=== PATIENT | male | born 1980 | race Caucasian/White ===

== ENCOUNTER 2023-11-10 04:08 | Day surgery (SDC) | payer OTHER ==
[2023-11-10] VITALS (233 sets, daily range): BP systolic 72–156; BP diastolic 27–127
--- NOTE | 2023-11-10 07:17 | NUR ---
PATIENT AMBULATORY TO ROOM WITH . PATIENT IS ALERT AND OREINTED X3. CONSENTS OBTAINED VS WITH MED HX OBTAINED DR CAMERON NOTIFIED. NEW ORDERS RECEIVED. PATIENT MEDICATED PER MD ORDERS. ADMISSION ASSESSMENT COMPELTED AT THIS TIME. IV ESTABLISHED. WILL CONMTINEU TO MONITOR.
[2023-11-10] MEDS ORDERED: SCOPOLAMINE 1.5 MG DIS TD PRN (07:30)
[2023-11-10] MEDS ORDERED: CYANOCOBALAMIN 500 MCG/TAB ( B12) PO PRN (07:30)
[2023-11-10] MEDS ORDERED: cloNIDine HCL 0.1 MG/TAB PO PRN (07:30)
[2023-11-10] MEDS ORDERED: PANTOPRAZOLE SODIUM Sesquihydr 40 MG/TAB PO PRN (07:30)
[2023-11-10] MEDS ORDERED: FAMOTIDINE 20 MG/TAB PO PRN (07:30)
[2023-11-10] MEDS ORDERED: diazePAM 5 MG/TAB PO PRN ×2 (07:30→08:30)
[2023-11-10] MEDS ORDERED: LACTATED RINGER'S 1,000 ML IV PRN ×3 (07:30→19:00)
[2023-11-10] MEDS ORDERED: ALBUTEROL SULFATE 2.5 MG VIAL IN PRN (07:30)
[2023-11-10] MEDS ORDERED: ASCORBIC ACID 4,000 MG in SODIUM CHLORIDE 0.9% 1,000 ML IV SCH (08:00)
[2023-11-10 08:08] LABS: BASO% 0.2 % (0-3); EOS% 7.7 % (0-8); HEMATOCRIT 43.6 % (39.0-50.0); IMMATURE GRANULOCYTES 0.3 % (0.0-5.0); MEAN CELL VOLUME 88.3 fL CALC (80.0-100.0); MEAN CORPUSCULAR HGB 28.3 pG CALC (26.0-32.0); MEAN CORPUSCULAR HGB CONC 32.1 g/dL CAL (32.0-36.0); MONO% 10.7 % (2-13); NEUT# 5.61 thou/uL (1.82-7.42); NEUT% 60.1 % (42-76); RED BLOOD COUNT 4.94 mill/uL (4.70-6.10); RED CELL DISTRI WIDTH 12.9 % (11.5-15.5)
[2023-11-10 08:30] LABS: ALBUMIN 4.5 g/dL (3.2-5.0); BILIRUBIN, TOTAL 0.7 mg/dL (0.2-1.3); CREATININE 1.1 mg/dL (0.7-1.3); POTASSIUM 4.3 mmol/l (3.5-5.1); TOTAL PROTEIN 7.5 g/dL (6.3-8.2)
--- NOTE | 2023-11-10 08:30 | NUR ---
RT AT BEDSIDE FOR EKG
[2023-11-10] MEDS ORDERED: cloNIDine HYDROCHLORIDE 100 MCG/ML 10 ML INJ IV PRN (08:35)
[2023-11-10] MEDS ORDERED: PROPOFOL 100 ML IV PRN (08:35)
[2023-11-10] MEDS ORDERED: LIDOCAINE HCL 1% (10MG/ML) 100 MG/10 ML MDV VT PRN ×2 (08:35)
[2023-11-10] MEDS ORDERED: PROPOFOL 10 MG/ML 100ML VIAL IV PRN (08:35)
[2023-11-10] MEDS ORDERED: DiphenhydrAMINE HCL 50 MG/ML SDV IV PRN (08:35)
[2023-11-10] MEDS ORDERED: SUCCINYLCHOLINE CHLORIDE 20 MG/ML 10ML VIAL IV PRN (08:35)
[2023-11-10] MEDS ORDERED: MIDAZOLAM HCL 2 MG/2 ML VIAL IV PRN (08:35)
[2023-11-10] MEDS ORDERED: diazePAM 5 MG/TAB VT PRN (08:35)
[2023-11-10] MEDS ORDERED: STERILE WATER FOR IRRIGATION 1,000 ML BTL IR PRN (08:35)
[2023-11-10] MEDS ORDERED: DEXAMETHASONE SODIUM PHOSPHATE PF 10 MG/ML SDV IV PRN ×2 (08:35→19:00)
[2023-11-10] MEDS ORDERED: ONDANSETRON HCl 4 MG/2 ML SDV IV PRN ×3 (08:35→19:00)
[2023-11-10] MEDS ORDERED: MAGNESIUM SULFATE HEPTAHYDRATE 100 ML IV PRN (08:35)
[2023-11-10] MEDS ORDERED: cloNIDine HCL 0.1 MG/TAB VT PRN (08:35)
[2023-11-10] MEDS ORDERED: ROCURONIUM BROMIDE 10 MG/ML 5ML VIAL IV PRN (08:35)
[2023-11-10] MEDS ORDERED: NALTREXONE HCL 50 MG/TAB VT PRN (08:35)
[2023-11-10] MEDS ORDERED: OCTREOTIDE ACETATE 100 MCG/VIAL SDV SC PRN (08:35)
[2023-11-10] MEDS ORDERED: LIDOCAINE HCL 1% (10MG/ML) 100 MG/10 ML MDV IV PRN (08:35)
[2023-11-10] MEDS ORDERED: THIAMINE HCL 100 MG/ML 2ML VIAL IV PRN (08:35)
--- NOTE | 2023-11-10 09:00 | NUR ---
DR PRATT AT BEDSIDE TO SEE PATIENT.
--- NOTE | 2023-11-10 09:15 | NUR ---
Induction Note Time out performed at 0915. Patient placed on monitors, Eleazar hugger, bilateral wrist restraints applied for ET tube protection. Versed 5mg given IV push at 09 Tourniquet applied to RIGHT arm Lidocaine 100mg given [id number] IV push followed by Rocoronium 10mg at 0922 IV push and held for 90 seconds. Propofol bolus of 130mg given at 0923 IV push. Succinylcholine 80mg given IV push at 0924. Smooth intubation with 7.5 ETT. Positive CO2. Positive Auscultation for air exchange. Patient placed on ventilator for spontaneous ventilation. Placed on Propofol IV drip at 0924. OG inserted. Positive air on auscultation. Positive gastric content. Stomach washed at this time.
--- NOTE | 2023-11-10 09:30 | NUR ---
OG close note Stomach washed at this time. Naltrexone 50 mg with Clonidine 0.2 mg via OG tube. OG will be clamped for 45 minutes.
[2023-11-10] MEDS ORDERED: POTASSIUM CHLORIDE 20 MEQ/100 ML BAG IV PRN (09:35)
--- NOTE | 2023-11-10 09:46 | NUR ---
OG open note OG open at this time due to patient vomiting. oral suction performed and ET suction performed Gastric content draining into drainage bag. OG to drain for 45 minutes. Propofol will be titrated down based on patient.
--- NOTE | 2023-11-10 10:30 | NUR ---
OG close note Stomach washed at this time. Naltrexone 50 mg with Clonidine 0.2 mg via OG tube. OG will be clamped for 45 minutes.
--- NOTE | 2023-11-10 11:15 | NUR ---
OG open note OG open at this time. Gastric content draining into drainage bag. OG to drain for 45 minutes. Propofol will be titrated down based on patient.
--- NOTE | 2023-11-10 12:05 | NUR ---
OG close note Stomach washed at this time. Naltrexone 50 mg with Clonidine 0.1 mg via OG tube. OG will be clamped for 45 minutes.
--- NOTE | 2023-11-10 12:50 | NUR ---
4OG open note OG open at this time. Gastric content draining into drainage bag. OG to drain for 45 minutes. Propofol will be titrated down based on patient.
[2023-11-10] MEDS ORDERED: KLONOPIN2 MG PO (13:16)
[2023-11-10] MEDS ORDERED: CLONIDINE0.1 MG PO (13:16)
[2023-11-10] MEDS ORDERED: NALTREXONE50 MG PO (13:16)
--- NOTE | 2023-11-10 13:35 | NUR ---
OG close note Stomach washed at this time. Naltrexone 50 mg via OG tube. OG will be clamped for 45 minutes.
[2023-11-10] MEDS ORDERED: LIDOCAINE HCL 1% (10MG/ML) 100 MG/10 ML MDV IV SCH (15:00)
[2023-11-10] MEDS ORDERED: ACETAMINOPHEN 1,000 MG/100 ML VIAL IV SCH (15:00)
[2023-11-10] MEDS ORDERED: KETOROLAC TROMETHAMINE 30 MG/ML SDV IV SCH (15:00)
--- NOTE | 2023-11-10 15:00 | NUR ---
VALIUM 10MG GIVEN VIA og tube
--- NOTE | 2023-11-10 15:35 | NUR ---
Extubation note Closing medications given Benadryl 50mg IV push, Decadron 10mg IV push,Magnesium 4 grams IV, Zofran 8mg IV push, Octreotide 100mcg SC. Stomach washed out prior to extubation. Suctioned gastric content. OG removed. Patient extubated. Propofol Discontinued. Wrist restraints removed. Eleazar hugger Removed. See ANR Moderate sedate recovery record for further notes and assessment.
--- NOTE | 2023-11-10 16:00 | NUR ---
patient vomitted medicated with brhemsys per md.
--- NOTE | 2023-11-10 16:53 | NUR ---
[facility] p[facility]int on cpap per md. patient tolerating well.
--- NOTE | 2023-11-10 17:06 | NUR ---
PATIENT JUST ARRIVED TO [facility] FROM [facility] REPORT WAS GIVEN FROM KAITLIN RN; PATIENT SLEEPING IN BED; RT APPLIED CPAP TO PATIENT; NO S/S OF DISTRESS AT THIS TIME; VITALS WAS STABLE; EYE COVERING IN PLACE; IV SITE CLEAN AND INTACT LR RUNNING ON RAC @100; PERSONAL ITEMS IN [facility] LOCKER; CALL LIGHT WITHIN REACH, BED IN LOWEST POSTION; BED ALARM ACTIVATED
--- NOTE | 2023-11-10 17:15 | NUR ---
kieran to [facility]. bedside report given. s/o updated
[2023-11-10] MEDS ORDERED: PROMETHAZINE HCL 25 MG in SODIUM CHLORIDE 0.9% 50 ML IV PRN (19:00)
[2023-11-10] MEDS ORDERED: HALOPERIDOL LACTATE 5 MG/ML SDV IV PRN (19:00)
[2023-11-10] MEDS ORDERED: PROMETHAZINE HCL 12.5 MG in SODIUM CHLORIDE 0.9% 50 ML IV PRN (19:00)
[2023-11-10] MEDS ORDERED: KETOROLAC TROMETHAMINE 30 MG/ML SDV IV PRN (19:00)
[2023-11-10] MEDS ORDERED: ACETAMINOPHEN 1,000 MG/100 ML VIAL IV PRN (19:00)
[2023-11-10] MEDS ORDERED: LORazepam 2 MG/ML IV PRN ×2 (19:00)
[2023-11-10] MEDS ORDERED: ACETAMINOPHEN 500 MG TAB PO PRN (19:00)
--- NOTE | 2023-11-10 20:00 | NUR ---
RECEIVED REPORT FROM DAYSHIFT NURSE DENNIS ABRAMS. PT NOTED TOSSING AND TURNING IN BED, CPAP APPLIED HOWEVER KEPT TRYING TO REMOVE. PT STATED "WHAT TIME CAN I LEAVE" PT IS A/OX2 TO SELF AND PLACE, ABLE TO RECALL PROCEDURE COMPLETED. REORIENTED PT TO TIME AND EDUCATED ON POC AND MED SCHEDULE FOR TONIGHT. PT THEN ASKED "CAN I GET SOME MORE VALIUM" REITERATED TO PT MED SCHEDULE. IV SITES APPEAR HEALTHY AND INTACT WITH FLUIDS RUNNING PER EMAR. VSS. NO S/S OF DISTRESS. BED ALARM ON AND SAFETY PRECAUTIONS IN PLACE.
[2023-11-10] MEDS ORDERED: PATIENT' OWN MED CONTROLLED 1 EA DOSE IV PRN (21:00)
[2023-11-10] MEDS ORDERED: cloNIDine HCL 0.1 MG/TAB PO SCH (23:00)
[2023-11-10] MEDS ORDERED: clonazePAM 1 MG/TAB PO PRN (23:00)
--- NOTE | 2023-11-10 23:36 | NUR ---
PT RECEIVED SCHEDULED MEDICATIONS PER EMAR AND TOLERATED WELL. PT DENIES ANY P/N/V AT THIS TIME. PT REQUESTED TO USE THE OMA, GLASS CLEANER AND REGIONAL ACCOUNT MANAGER ASSISTED PT TO BSC. PT VOIDED WITHOUT DIFFICULTY. ASSISTED BACK INTO BED. OFFERED EXTRA PILLOWS AND WARM BLANKET FOR COMFORT. CPAP REAPPLIED. PT LAYING IN BED ON RT SIDE. NO S/S OF DISTRESS. VSS. BED ALARM ON AND SAFETY PRECAUTIONS IN PLACE.
[2023-11-11] MEDS ORDERED: cloNIDine HCL 0.1 MG/TAB PO PRN (04:00)
[2023-11-11] MEDS ORDERED: clonazePAM 1 MG/TAB PO PRN ×2 (04:00→08:00)
[2023-11-11] MEDS ORDERED: NALTREXONE HCL 50 MG/TAB PO SCH (04:00)
[2023-11-11 04:14] VITALS: BP 126/68
--- NOTE | 2023-11-11 04:47 | NUR ---
PT NOTED LAYING IN BED ON LEFT SIDE, CPAP IN PLACE. ADMINISTERED 0400 MEDICATIONS PER EMAR, PT TOLERATED WELL. CPAP MASK REAPPLIED IN PLACE. PT DNEIED ANY N/V/P AT THIS TIME. VSS. NO S/S OF DISTRESS. BED ALARM ON AND SAFETY PRECAUTIONS IN PLACE.
[2023-11-11 05:39] LABS: ALBUMIN 4.1 g/dL (3.2-5.0); BILIRUBIN, TOTAL 0.8 mg/dL (0.2-1.3); CREATININE 0.9 mg/dL (0.7-1.3); MAGNESIUM 2.2 mg/dL (1.6-2.3); POTASSIUM 4.1 mmol/l (3.5-5.1); TOTAL PROTEIN 6.7 g/dL (6.3-8.2)
[2023-11-11 05:43] LABS: BASO% 0.1 % (0-3); EOS% 0.1 % (0-8); HEMATOCRIT 39.1 % (39.0-50.0); HEMOGLOBIN 12.6 g/dl (14.0-18.0); IMMATURE GRANULOCYTES 0.3 % (0.0-5.0); LYMPH% 4.6 % (15-41); MEAN CELL VOLUME 87.5 fL CALC (80.0-100.0); MEAN CORPUSCULAR HGB 28.2 pG CALC (26.0-32.0); MEAN CORPUSCULAR HGB CONC 32.2 g/dL CAL (32.0-36.0); NEUT# 16.59 thou/uL (1.82-7.42); NEUT% 90.9 % (42-76); RED BLOOD COUNT 4.47 mill/uL (4.70-6.10); RED CELL DISTRI WIDTH 12.5 % (11.5-15.5)
[2023-11-11] MEDS ORDERED: PANTOPRAZOLE SODIUM Sesquihydr 40 MG/TAB PO SCH (08:00)
[2023-11-11] MEDS ORDERED: cloNIDine HCL 0.1 MG/TAB PO SCH (08:00)
[2023-11-11] MEDS ORDERED: ACETAMINOPHEN 325 MG/TAB PO SCH (08:00)
[2023-11-11 08:08] VITALS: BP 117/52
--- NOTE | 2023-11-11 08:55 | NUR ---
patient a/o x3; patient on cpap; deneid any pain; denied any n/d/v; patient tolerated medication admin; encouraged patient to try to eat breakfast; denied needing anything; medication reviewed; no s.s of distress at this time; labs within range, iv site clean and intact running with LR @100; call light within reach, verbalized understanding on how to use, personal items in anr locker; bed in lowest postion; bed alarm activated
[2023-11-11] MEDS ORDERED: ACETAMINOPHEN 500 MG TAB PO PRN (09:00)
[2023-11-11] MEDS ORDERED: MAGNESIUM OXIDE 400 MG/TAB PO PRN (09:00)
[2023-11-11] MEDS ORDERED: Cholecalciferol 2,000 UNIT/TAB PO PRN (09:00)
--- NOTE | 2023-11-11 10:04 | NUR ---
RT in room with patient, cpap was removed and moved to 2L of NC' o2 stable;
--- NOTE | 2023-11-11 11:20 | NUR ---
assited patient to shower; patient had steady gait; changed bed linen; asssited patient to bed; call light within reach, verablized understanding on how to use, bed in lowest postion; bed alarm activated; saftey measures in place
--- NOTE | 2023-11-11 12:45 | NUR ---
SPOKE TO PT'S SIGNIFICANT OTHER. SHE WILL BE HERE AT 1400 TO PICK HIM UP.
== END 2023-11-11 16:00 | disposition home or self-care (01) | DRG 897 ==
LOC: MS2 04:08 → ANR 04:08 → MS2 04:10 → ANR 09:00 → MS2 17:11 → ANR 11-11 16:00
PROVIDERS: ATTEND Anesthesiology
DX: F11.20 Opioid dependence, uncomplicated (principal)
CPT/HCPCS: J0131; J1100; J2060; J2354; J3475; J3490